=== PATIENT | female | born 1965 | race Asian ===

== ENCOUNTER 2016-09-04 19:58 | Emergency (ER) | payer OTHER ==
[2016-09-04 20:15] VITALS: BP 140/82; PULSE 90; TEMP 98.2; BMI 33.9
--- NOTE | 2016-09-04 20:55 | PDOC ---
History of Present Illness - General History Source: Patient Exam Limitations: No Limitations - History of Present Illness Initial Comments: 09/04/16 20:59 Patient is a 51 year old female with pmhx of Sjogrens syndrome who presents today with worsening right leg pain. Patient states that the pain has worsened for the last 2 and half weeks. She was seen in an Urgent Care and prescribed ibuprofen for pain. Patient states that the pain is not getting better. She also reports a lump to the back of the knee. 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 She denies any recent new trauma or falls. She denies any recent travel. She denies any SOB, cp, or chest pain. <Joann Valle - Last Filed: 09/04/16 21:08> <Christine Lam - Last Filed: 09/04/16 21:47> - General Chief Complaint: Pain Stated Complaint: LEG PAIN Time Seen by Provider: 09/04/16 20:39 Past History <Joann Valle - Last Filed: 09/04/16 21:08> - Past Medical History Anemia: No Asthma: No Cancer: No Cardiac Disorders: No CVA: No COPD: No CHF: No Dementia: No Diabetes: No GI Disorders: Yes (GASTRITIS, RT UPPER ABD. PAIN) Disorders: No HTN: Yes Hypercholesterolemia: No Liver Disease: No Seizures: No Thyroid Disease: No - Surgical History Abdominal Surgery: No Appendectomy: No Cardiac Surgery: No Cholecystectomy: No Lung Surgery: No Neurologic Surgery: No Orthopedic Surgery: No (LEFT ACHILLES SURGERY) - Psycho/Social/Smoking Cessation Hx Anxiety: No Suicidal Ideation: No Smoking History: Never smoked Have you smoked in the past 12 months: No Hx Alcohol Use: No Drug/Substance Use Hx: No Substance Use Type: None <Christine Lam - Last Filed: 09/04/16 21:47> - Past Medical History Allergies/Adverse Reactions: Allergies Allergy/AdvReac Type Severity Reaction Status Date / Time No Known Allergies Allergy Verified 09/04/16 20:15 Home Medications: Ambulatory Orders NK [No Known Home Medication] 07/11/15 Review of Systems - Review of Systems Able to Perform ROS?: Yes Comments:: 09/04/16 20:59 CONSTITUTIONAL: Absent: fever, no chills, no fatigue EYES: Absent: visual changes ENT: Absent: ear pain, no sore throat CARDIOVASCULAR: Absent: chest pain, no palpitations RESPIRATORY: Absent: cough, no SOB GI: Absent: abdominal pain, no nausea, no vomiting, no constipation, no diarrhea GENITOURINARY: Absent: dysuria, no frequency, no hematuria MUSCULOSKELETAL: Present: right leg pain. Absent: back pain SKIN: Absent: rash <Joann Valle - Last Filed: 09/04/16 21:08> *Physical Exam - Vital Signs Last Vital Signs Temp Pulse Resp BP Pulse Ox 98.2 F 90 18 140/82 99 09/04/16 20:12 09/04/16 20:12 09/04/16 20:12 09/04/16 20:12 09/04/16 20:12 - Physical Exam Comments: 09/04/16 21:00 GENERAL: Well-appearing, well-nourished. No apparent distress. HEENT: Normocephalic, atraumatic. PERRL, EOM intact. CARDIOVASCULAR: Normal S1, S2. Regular rate and rhythm. PULMONARY: Clear to auscultation bilaterally. ABDOMEN: Soft, non-distended, non-tender. EXTREMITIES: (+)Equal pedal pulse, no lump appreciated to the back of the knee on exam. Normal ROM in all four extremities. No gross deformities. SKIN: Warm, dry. No rash NEUROLOGICAL: No focal neurological deficits. <Joann Valle - Last Filed: 09/04/16 21:08> - Vital Signs Last Vital Signs Temp Pulse Resp BP Pulse Ox 98.2 F 90 18 140/82 99 09/04/16 20:12 09/04/16 20:12 09/04/16 20:12 09/04/16 20:12 09/04/16 20:12 <Christine Lam - Last Filed: 09/04/16 21:47> *DC/Admit/Observation/Transfer - Attestations Scribe Attestion: 09/04/16 21:00 Documentation prepared by LANDON Dick, acting as medical staff coordinator for Christine Lam NP. <Joann Valle - Last Filed: 09/04/16 21:08> <Genaro,Mini S. - Last Filed: 09/04/16 21:47> Diagnosis at time of Disposition: Pain of right lower extremity - Discharge Dispostion Disposition: HOME - Referrals Referrals: Charlene Cruz MD [Primary Care Provider] - 24 hours - Patient Instructions Printed Discharge Instructions: DI for Leg Pain Additional Instructions: follow up with your primary care doctor as soon as possible. take ibuprofen every 6 hours with food as needed for pain.
[2016-09-04] MEDS ORDERED: KETOROLAC TROMETHAMINE 30 MG/1 ML VIAL IM ONE (21:43)
[2016-09-04] MEDS ORDERED: KETOROLAC TROMETHAMINE 30 MG/1 ML VIAL ONE (21:49)
== END 2016-09-04 22:03 | disposition home or self-care (01) ==
LOC: JERFT 19:58
PROC: 3E0233Z Introduction of Anti-inflammatory into Muscle, Percutaneous Approach (ICD-10-PCS; principal; 2016-09-04)
DX: M79.604 Pain in right leg (principal); I10 Essential (primary) hypertension
CPT/HCPCS: 93971-TC; 99281-25

== ENCOUNTER 2016-09-19 07:37 | Day surgery (SDC) | payer OTHER ==
[2016-09-12 13:05] VITALS: BMI 36.3
[2016-09-19] MEDS ORDERED: LIDOCAINE 1%/EPI 1:100000 (20 ML MULTI DOSE VIAL) ONE (08:02)
[2016-09-19] MEDS ORDERED: BUPIVACAINE HCL/PF 0.5% (5MG/ML) 10 ML VIAL ONE ×3 (08:02→10:03)
[2016-09-19] MEDS ORDERED: MIDAZOLAM HCL 2 MG/2 ML SINGLE DOSE VIAL ONE (09:01)
[2016-09-19] MEDS ORDERED: PROPOFOL 20 ML ONE ×2 (09:26)
[2016-09-19] MEDS ORDERED: ePHEDrine SULFATE 50 MG/1 ML AMPULE ONE (09:26)
[2016-09-19] MEDS ORDERED: SUCCINYLCHOLINE CHLORIDE 200 MG/10 ML VIAL ONE (09:26)
[2016-09-19] MEDS ORDERED: KETOROLAC TROMETHAMINE 30 MG/1 ML VIAL ONE (09:28)
[2016-09-19] MEDS ORDERED: ONDANSETRON 4 MG/2 ML VIAL ONE (09:28)
[2016-09-19] MEDS ORDERED: DEXAMETHASONE SOD PHOSPHATE 4 MG/1 ML VIAL ONE (09:28)
[2016-09-19] MEDS ORDERED: LIDOCAINE HCL/PF 2% SDV 5ML VIAL ONE (09:28)
--- NOTE | 2016-09-19 10:13 | HP ---
Satellite [facility] - Chief Complaint Chief Complaint: right knee pain - Past Medical History Allergies/Adverse Reactions: Allergies Allergy/AdvReac Type Severity Reaction Status Date / Time No Known Allergies Allergy Verified 09/19/16 08:13 ...LMP: 12/14/11 ...LMP Comment: September 2015 - Current Medications Current Medications: Home Medications Medication Instructions Recorded Amlodipine Besylate 5 mg PO DAILY 09/12/16 Famotidine 20 mg PO DAILY 09/12/16 Oxycodone HCl/Acetaminophen 1 - 2 tab PO Q6H #50 tab MDD 8 09/19/16 [Percocet 5-325 mg Tablet -] Satellite Physical Exam - Physical Examination Vital Signs: Vital Signs Period Temp Pulse Resp BP Sys/Chapin Pulse Ox Last 24 Hr 98.2 F 94 16 134/83 98-98 General Appearance: Well Nourished, Well Developed, Alert & Oriented x3 ENT: Clear Lung: Normal air movement Heart: Regular rate & rhythm Extremities: Other (right knee- + swelling, + ttp, decr rom, + mcmurrays, + apleys, nvi MRI + mmt) Neurological: Intact, Alert, Oriented Satellite Impression/Plan - Impression/Plan Impression: right knee internal derangement Operative Procedure: right knee arthroscopy Date to be Performed: 09/19/16
[2016-09-19] MEDS ORDERED: oxyCODONE HCL 5 MG TABLET PO PRN (10:23)
[2016-09-19] MEDS ORDERED: LACTATED RINGERS SOLUTION 1,000 ML IV SCH (10:30)
[2016-09-19 10:35] VITALS: TEMP 97.7
[2016-09-19] MEDS ORDERED: ONDANSETRON 4 MG/2 ML VIAL IVPUSH ONE (10:45)
--- NOTE | 2016-09-19 10:52 | SPEC ---
DATE OF OPERATION: 09/19/2016 OPERATION: Arthroscopy, right knee, with partial medial meniscectomy. PREOPERATIVE DIAGNOSIS: Internal derangement, right knee. POSTOPERATIVE DIAGNOSIS: Internal derangement, right knee. SURGEON: Alexander Garcia M.D. ANESTHESIA: General with LMA. CLOSURE: 4-0 nylon. COMPLICATIONS: None. CONDITION: To recovery room in stable condition. DESCRIPTION OF OPERATIVE PROCEDURE: Patient was taken to the operating room and general anesthesia with LMA was administered by the anesthesiologist. Right lower extremity was prepped and draped in usual sterile fashion. The supralateral and medial lateral infrapatellar portal sites were infiltrated with 1% Xylocaine with epinephrine. Supralateral portal was made with a 15 blade blunt trocar. The right knee was aspirated and inflated with a cocktail of 10 mL of 1% Xylocaine with 0.5% Marcaine and 20 mL of arthroscopic saline. Medial and lateral infrapatellar portals were then made with a 15 blade blunt trocar. The scope was placed in the lateral infrapatellar portal and up into the suprapatellar pouch. Pouch was visualized to be clean. The medial and lateral gutters were visualized to be clean. The undersurface of the patella and trochlea were visualized to be intact. With valgus stress on the knee, the medial compartment was entered and medial meniscus was visualized, probed, and found to have a complex tear of the posterior horn. This was debrided back to smooth and stable meniscal tissue using meniscal biters and arthroscopic shaver. Medial femoral condyle was run and found to be intact as was the medial tibial plateau. At 90 degrees, the ACL was visualized, probed and found to be intact. In the figure four position, the lateral compartment was entered. Lateral meniscus was visualized, probed and found to be intact. The lateral femoral condyle was run and found to be intact as was the lateral tibial plateau. The knee was irrigated with copious amounts of irrigation. The portals were closed with 4-0 nylon. Prior to closure of the supralateral portal, 20 mL of 0.5% Marcaine was infused through the outflow portal prior to pulling the cannula. Sterile pressure dressing was placed over the knee. Patient was awakened from anesthesia and transferred to recovery room in stable condition. No complications. Estimated blood loss was negligible. ALEXANDER GARCIA M.D. [id number]
[2016-09-19] MEDS ORDERED: ONDANSETRON 4 MG/2 ML VIAL IVPUSH PRN (11:03)
[2016-09-19 12:53] VITALS: BP 132/78; PULSE 86
== END 2016-09-19 12:40 | disposition home or self-care (01) ==
LOC: FASU 07:37
PROVIDERS: ATTEND Orthopaedic Surgery
PROC: 0SBC4ZZ Excision of Right Knee Joint, Percutaneous Endoscopic Approach (ICD-10-PCS; principal; 2016-09-19 09:59)
DX: S83.231A Complex tear of medial meniscus, current injury, right knee, initial encounter (principal); X58.XXXA Exposure to other specified factors, initial encounter; Y93.9 Activity, unspecified; Y92.9 Unspecified place or not applicable
CPT/HCPCS: 84703; 94760

== ENCOUNTER 2018-09-20 08:55 | Day surgery (SDC) | payer OTHER ==
[2018-09-19 13:56] VITALS: BMI 35.5
[2018-09-20] MEDS ORDERED: LIDOCAINE HCL 1%, 10 MG/ML (20ML VIAL) ONE (09:00)
--- NOTE | 2018-09-20 09:57 | HP ---
History & Physical Update - History History: No Change - Physical Physical: No Change - Assessment Assessment: No Change - Plan Plan: No Change (Indurated mass on right side of neck, in posterior triangle. Measures about 3 cm. in diameter. Plan : Excision of mass right neck.)
[2018-09-20] MEDS ORDERED: PROPOFOL 20 ML ONE (10:10)
[2018-09-20] MEDS ORDERED: ceFAZolin SODIUM 1 GM VIAL ONE ×2 (10:10→10:16)
[2018-09-20] MEDS ORDERED: LIDOCAINE HCL/PF 2% SDV 5ML VIAL ONE (10:10)
[2018-09-20] MEDS ORDERED: MIDAZOLAM HCL 2 MG/2 ML SINGLE DOSE VIAL ONE (10:10)
[2018-09-20] MEDS ORDERED: ceFAZolin SODIUM 1 GM VIAL IVPB ONE (10:14)
[2018-09-20] MEDS ORDERED: LIDOCAINE HCL 1%, 10 MG/ML (20ML VIAL) NR ONE (10:28)
--- NOTE | 2018-09-20 11:05 | OP ---
Operative Note - Note: Operative Date: 09/20/18 Pre-Operative Diagnosis: 4cm. mass in right posterior neck. Operation: Excision of 4cm. mass in right posterior neck, deep to deep fascia , with simple repair in layers. Findings: Firm mass extending deep to deep fascia. Post-Operative Diagnosis: Same as Pre-op Surgeon: Husam Bello Anesthesiologist/CARDIAC SPECIALIST: Martha Jones Anesthesia: Local, MAC Specimens Removed: Mass right posterior neck. Estimated Blood Loss (mls): 5 Operative Report Dictated: Yes
--- NOTE | 2018-09-20 12:14 | OP ---
DATE OF OPERATION: 09/20/2018 PREOPERATIVE DIAGNOSIS: A 4-cm firm to hard mass, the right posterior neck. POSTOPERATIVE DIAGNOSIS: A 4-cm firm to hard mass, the right posterior neck. OPERATIVE PROCEDURE: Excision of 4-cm mass in the right posterior neck, extending deep to the deep fascia, with simple repair in layers. SURGEON: Luis Angel Bello MD ANESTHESIOLOGIST: Martha Jones MD ANESTHESIA: Local with monitored intravenous sedation. OPERATIVE DESCRIPTION: This 53-year-old woman had a mass in the right posterior neck which was firm to hard in the posterior triangle. Patient was brought in for excision of the lesion. Consent was obtained. Risks, benefits, and complications had been discussed with the patient. The site was marked. Patient was brought to the operating room. She was given intravenous sedation. The head was down to the left side, and the area of concern was exposed. The area was painted and draped. Lidocaine 1% with epinephrine was injected circumferentially around the lesion. A 4-cm elliptical incision was made around the lesion. Skin was undermined on both sides. The mass was identified. It was from the surrounding structures going through the subcutaneous fat and the deep fascia and completely excised. Specimen was sent to Pathology. The wound was irrigated. Bleeding vessels were cauterized with electrocautery. Upon excision, the lesion extended deep to the deep fascia. The deep fascia on either side was then approximately with buried interrupted 3-0 Vicryl sutures. Subcutaneous fat was approximated with buried interrupted 4-0 Biosyn sutures. Then, the skin was approximated with continuous 4-0 Biosyn sutures in a running subcuticular fashion. Estimated blood loss was less than 5 mL. Sponge count and instrument count were correct. Dermabond was applied to the skin edges. Patient tolerated the procedure well and was sent from the operative suite in satisfactory and stable condition. Teresa GARY/[id number]
[2018-09-20 12:24] VITALS: BP 103/56; PULSE 78; TEMP 97.8
--- NOTE | 2018-09-20 14:02 | EKG ---
Test Reason : Blood Pressure : / mmHG Vent. Rate : 082 BPM Atrial Rate : 082 BPM P-R Int : 144 ms QRS Dur : 074 ms QT Int : 374 ms P-R-T Axes : 033 -06 011 degrees QTc Int : 436 ms NORMAL SINUS RHYTHM MINIMAL VOLTAGE CRITERIA FOR LVH, MAY BE NORMAL VARIANT CANNOT RULE OUT INFERIOR INFARCT , AGE UNDETERMINED WHEN COMPARED WITH ECG OF 28-APR-2007 11:39, NO SIGNIFICANT CHANGE WAS FOUND Confirmed by ISABEL YO, SUSANA ([id number]) on 09/20/2018 2:02:04 PM Referred By: MAGDA KEATING DR Confirmed By:SUSANA HALL MD
--- NOTE | 2018-09-25 17:11 | PATH ---
Surgical Pathology Report Patient Name: CHRISTINE MCDANIELS [facility]. Rec. #: [id number] /Age/Gender: 1965 (Age: 53) / F Account: [id number] Location: [facility] SURGICAL Taken: 09/20/2018 Received: 09/23/2018 Reported: 09/25/2018 Physicians: Luis Angel Bello M.D. Specimen(s) Received RIGHT POSTERIOR NECK MASS Clinical History Right neck mass Final Diagnosis RIGHT POSTERIOR NECK MASS, EXCISION: SEGMENT OF SKIN WITH EPIDERMAL INCLUSION CYST, RUPTURED. Electronically Signed Anjana Moreno M.D. Gross Description Received in formalin labeled "mass posterior neck right," is a 1.7 x 0.4 cm alaniz, elliptical, unoriented portion of skin excised to depth of 0.6 cm. Sectioning reveals a alaniz-orange, possible cystic lesion. Manager Of Learning sections are submitted in one cassette. /09/23/2018 saudi09/23/2018
== END 2018-09-20 12:20 | disposition home or self-care (01) ==
LOC: JASU-SURG 08:55
PROVIDERS: ATTEND Specialist
PROC: 0JB40ZZ Excision of Right Neck Subcutaneous Tissue and Fascia, Open Approach (ICD-10-PCS; principal; 2018-09-20 10:00)
DX: L72.0 Epidermal cyst (principal)
CPT/HCPCS: 88304-TC; 93005; 93010

== ENCOUNTER 2019-01-28 13:58 | Emergency (ER) | payer OTHER ==
[2019-01-28 14:09] VITALS: BP 155/85; PULSE 118; TEMP 98.8; BMI 35.5
--- NOTE | 2019-01-28 14:14 | PDOC ---
Rapid Medical Evaluation Chief Complaint: Chest Pain Time Seen by Provider: 01/28/19 14:07 Medical Evaluation: Allergies Allergy/AdvReac Type Severity Reaction Status Date / Time No Known Allergies Allergy Verified 01/28/19 14:09 Vital Signs Temp Pulse Resp BP Pulse Ox 98.8 F 118 H 21 H 155/85 100 01/28/19 14:04 01/28/19 14:04 01/28/19 14:04 01/28/19 14:04 01/28/19 14:04 01/28/19 14:11 I have performed a brief in-person evaluation of this patient. The patient presents with a chief complaint of: h/o HTN present with complains of chest pressure, [place] and dizziness after having MRI of spine 4 days ago. Patient report symptoms started right after the MRI and has been persistent. Denies SOB, CP, palpitations, numbness or tingling sensation, Pertinent physical exam findings: A&O x 3 in NAD. RRR. lungs CTAB. I have ordered the following: EKG, CBC,Cardiac profile The patient will proceed to the ED for further evaluation. Discharge Disposition - Diagnosis Chest discomfort - Discharge Dispostion Condition at time of disposition: Stable - Referrals - Patient Instructions - Post Discharge Activity
[2019-01-28 15:05] LABS: BASO % 0.8 % (0-2.0); EOS % 1.1 % (0-4.5); HEMATOCRIT 38.6 % (32.4-45.2); HEMOGLOBIN 12.8 GM/dL (10.7-15.3); MCH 30.2 pg (25.7-33.7); MCHC 33.1 g/dl (32.0-36.0); MEAN PLT VOLUME 8.6 fl (7.5-11.1); MONO % 7.4 % (3.8-10.2); NEUT % 43.7 % (42.8-82.8); PLATELET COUNT 223 K/MM3 (134-434); RBC 4.24 M/mm3 (3.60-5.2); WHITE BLOOD COUNT 5.8 K/mm3 (4.0-10.0)
[2019-01-28 15:32] LABS: ANION GAP 5 MMOL/L (8-16); BLOOD UREA NITROGEN 14.3 mg/dL (7-18); CALCIUM 8.7 mg/dL (8.5-10.1); CHLORIDE 104 mmol/L (98-107); CO2 28 mmol/L (21-32); CREATININE 0.9 mg/dL (0.55-1.3); GLUCOSE,RANDOM 105 mg/dL (74-106); POTASSIUM 3.9 mmol/L (3.5-5.1); SODIUM 137 mmol/L (136-145)
[2019-01-28] MEDS ORDERED: KETOROLAC TROMETHAMINE 30 MG/1 ML VIAL IVPUSH ONE (15:56)
[2019-01-28] MEDS ORDERED: SODIUM CHLORIDE 0.9% 500 ML INFUS.BAG IV ONE (15:56)
--- NOTE | 2019-01-28 15:57 | PDOC ---
History of Present Illness <Dorina Aguilar - Last Filed: 01/28/19 19:41> - History of Present Illness Initial Comments: 01/28/19 16:23 53y/o F hx of sjogren's syndrome, HTN, presents to the ER with 4 days of left sided chest pain/discomfort and weakness, after and MRI 4 days ago,Pain is decribed more as discomfort and she rates it as a 3/10. She reports no alleviating/exacerbating symptoms. She took Tylenol for pain with no relief. she denies any nausea, vomiting, hx of blood clots,pleuritic chest pain, hemoptysis, treament for cancer within the last 6months, shortness of breath, cough, fever, chills. 01/28/19 16:35 <Nathaly Lion - Last Filed: 01/30/19 18:37> - General Chief Complaint: Chest Pain Stated Complaint: CHEST PAIN Time Seen by Provider: 01/28/19 14:07 Past History <Dorina Aguilar - Last Filed: 01/28/19 19:41> - Past Medical History Anemia: No Asthma: No Cancer: No Cardiac Disorders: No CVA: No COPD: No CHF: No Dementia: No Diabetes: No GI Disorders: Yes (GASTRITIS, RT UPPER ABD. PAIN) Disorders: No HTN: Yes Hypercholesterolemia: No Liver Disease: No Seizures: No Thyroid Disease: No - Surgical History Abdominal Surgery: No Appendectomy: No Cardiac Surgery: No Cholecystectomy: No Lung Surgery: No Neurologic Surgery: No Orthopedic Surgery: No (LEFT ACHILLES SURGERY) - Psycho Social/Smoking Cessation Hx Smoking History: Never smoked Have you smoked in the past 12 months: No Information on smoking cessation initiated: No Hx Alcohol Use: No Drug/Substance Use Hx: No Substance Use Type: None Hx Substance Use Treatment: No <Nathaly Lion - Last Filed: 01/30/19 18:37> - Past Medical History Allergies/Adverse Reactions: Allergies Allergy/AdvReac Type Severity Reaction Status Date / Time No Known Allergies Allergy Verified 01/28/19 14:09 Home Medications: Ambulatory Orders Amlodipine Besylate 5 mg PO DAILY 09/12/16 Ergocalciferol (Vitamin D2) [Vitamin D2] 50,000 unit PO WEEKLY 09/19/18 Multivitamin/Iron/Folic Acid [Centrum Adults Tablet] 1 each PO DAILY 09/19/18 Ibuprofen [Motrin -] 400 mg PO TID #21 tablet 09/20/18 Regrigerated Antibiotics 0 each PO DAILY 09/20/18 predniSONE [Deltasone -] 50 mg PO DAILY #4 tablet 01/28/19 predniSONE [Deltasone -] 60 mg PO DAILY 5 Days #15 tablet 01/28/19 Review of Systems - Review of Systems Constitutional: No: Chills, Fever HEENTM: No: Eye Pain, Blurred Vision Respiratory: No: Cough, Shortness of Breath Cardiac (ROS): Yes: Chest Pain, Palpitations ABD/GI: No: Nausea, Vomiting : No: Burning, Dysuria Integumentary: No: Bruising, Change in Color Neurological: No: Headache, Numbness <Nathaly Lion - Last Filed: 01/30/19 18:37> *Physical Exam - Vital Signs Last Vital Signs Temp Pulse Resp BP Pulse Ox 98.8 F 118 H 21 H 155/85 100 01/28/19 14:04 01/28/19 14:04 01/28/19 14:04 01/28/19 14:04 01/28/19 14:04 <Dorina Aguilar - Last Filed: 01/28/19 19:41> - Vital Signs Last Vital Signs Temp Pulse Resp BP Pulse Ox 98.8 F 118 H 21 H 155/85 100 01/28/19 14:04 01/28/19 14:04 01/28/19 14:04 01/28/19 14:04 01/28/19 14:04 - Physical Exam 01/28/19 16:33 PE: GENERAL: Awake, alert, and fully oriented, in no acute distress HEAD: No signs of trauma, normocephalic, atraumatic EYES: PERRLA, EOMI, sclera anicteric, conjunctiva clear ENT: Auricles normal inspection, hearing grossly normal, nares patent, oropharynx clear without exudates. Moist mucosa NECK: Normal ROM, supple, JVD, or masses LUNGS: No distress, speaks full sentences, clear to auscultation bilaterally HEART: Regular rate and rhythm, normal S1 and S2, no murmurs, rubs or gallops, peripheral pulses normal and equal bilaterally. ABDOMEN: Soft, nontender, normoactive bowel sounds. No guarding, no rebound. No masses EXTREMITIES : Normal inspection, Normal range of motion, no edema. No clubbing or cyanosis NEUROLOGICAL: Cranial nerves II through XII grossly intact. Normal speech, normal gait, no focal sensorimotor deficits SKIN: Warm, erythema of cheeks. rash on fingers and hands, and anterior neck. <Nathaly Lion - Last Filed: 01/30/19 18:37> ED Treatment Course - LABORATORY CBC & Chemistry Diagram: 01/28/19 14:56 01/28/19 14:56 - ADDITIONAL ORDERS Additional order review: Laboratory Results 01/28/19 01/28/19 01/28/19 16:45 16:45 14:56 PT with INR 11.00 INR 0.93 PTT (Actin FS) 30.7 D-Dimer 395 Sodium 137 Potassium 3.9 Chloride 104 Carbon Dioxide 28 Anion Gap 5 L BUN 14.3 Creatinine 0.9 Est GFR (CKD-EPI)AfAm 83.43 Est GFR (CKD-EPI)NonAf 71.98 Random Glucose 105 Calcium 8.7 Creatine Kinase 84 Troponin I < 0.02 01/28/19 14:56 RBC 4.24 MCV 91.0 MCHC 33.1 RDW 13.0 MPV 8.6 Neutrophils % 43.7 Lymphocytes % 47.0 H Monocytes % 7.4 Eosinophils % 1.1 Basophils % 0.8 - Medications Given in the ED: ED Medications Discontinued Medications Generic Name Dose Route Start Last Admin Trade Name Freq PRN Reason Stop Dose Admin Ketorolac Tromethamine 30 mg 01/28/19 15:56 01/28/19 16:57 Toradol Injection - IVPUSH 01/28/19 15:57 30 mg ONCE ONE Administration Sodium Chloride 1,000 ml 01/28/19 15:56 01/28/19 16:56 Normal Saline - IV 01/28/19 15:57 1,000 ml ONCE ONE Administration <Dorina Aguilar - Last Filed: 01/28/19 19:41> - LABORATORY CBC & Chemistry Diagram: 01/28/19 14:56 01/28/19 14:56 - ADDITIONAL ORDERS Additional order review: Laboratory Results 01/28/19 14:56 Sodium 137 Potassium 3.9 Chloride 104 Carbon Dioxide 28 Anion Gap 5 L BUN 14.3 Creatinine 0.9 Est GFR (CKD-EPI)AfAm 83.43 Est GFR (CKD-EPI)NonAf 71.98 Random Glucose 105 Calcium 8.7 Creatine Kinase 84 Troponin I < 0.02 01/28/19 14:56 RBC 4.24 MCV 91.0 MCHC 33.1 RDW 13.0 MPV 8.6 Neutrophils % 43.7 Lymphocytes % 47.0 H Monocytes % 7.4 Eosinophils % 1.1 Basophils % 0.8 <Nathaly Lion - Last Filed: 01/30/19 18:37> Medical Decision Making - Medical Decision Making 01/28/19 16:00 wells's score 1.5 01/28/19 16:35 53y/o F hx of sjogren's syndrome, HTN, presents to the ER with 4 days of left sided chest pain/discomfort and weakness, cbc, bmp, ekg, pt/ptt/inr, chest x-ray (pa, lateral) 01/28/19 18:06 trop negative d-dimer wnl Pt doing better after pain medication. Pain and generalzied weaknes likely due to Sjogren's flare Pt counseled to follow up with her PCP and Application Project Leader as soon as possible to establish care. signed out to Dr. Aguilar 01/30/19 18:35 <Nathaly Lion - Last Filed: 01/30/19 18:37> Discharge <Dorina Aguilar - Last Filed: 01/28/19 19:41> - Discharge Information Problems reviewed: Yes - Admission No <Nathaly Lion - Last Filed: 01/30/19 18:37> - Discharge Information Clinical Impression/Diagnosis: Chest discomfort Sjogrens syndrome Qualifiers: Sjogren's organ involvement: unspecified organ involvement Qualified Code(s): M35.00 - Sicca syndrome, unspecified Condition: Stable Disposition: HOME - Additional Discharge Information Prescriptions: predniSONE [Deltasone -] 60 mg PO DAILY 5 Days #15 tablet predniSONE [Deltasone -] 50 mg PO DAILY #4 tablet - Follow up/Referral Referrals: Charlene Cruz MD [Primary Care Provider] - - Patient Discharge Instructions Patient Printed Discharge Instructions: Sjogren Syndrome, DI for Atypical Chest Pain Additional Instructions: You were seen in the ER for chest pain All your labs were normal You have been prescribed steroid medications. take as prescribed Follow up with your primary care doctor Dr. Cruz after being discharged for tapering of your steroid medications Please follow up with your assembler tester within 1-2 weeks. Return to the ER if chest pain worsens you develop fevers, chills - Post Discharge Activity
--- NOTE | 2019-01-28 16:37 | PDOC ---
Attending Attestation - Resident Resident Name: Nathaly Lion - ED Attending Attestation I have performed the following: I have examined & evaluated the patient, The case was reviewed & discussed with the resident, I agree w/resident's findings & plan - HPI HPI: 01/28/19 16:30 53-year-old female with history of hypertension and Sjogren's presents with 4 days of back pain with generalized weakness and musculoskeletal discomfort. Patient had routine outpatient noncontrast MRI of the cervical and thoracic spine 4 days ago, ordered by neurology. During the MRI, patient began feeling generally weak and achy, proceeded with the MRI without other difficulty. Since then, reports worsening of her chronic back pain along with onset of her Sjogren's facial rash and generalized weakness. No fevers or chills, the rash is typical of her Sjogren's but now also includes the dorsal aspect of both wrists, no other arthropathy or complaints. went to outside ED day after MRI to report generalized weakness, had labs/ua done and discharged home. presents now 2/2 persistent sxs. - Physicial Exam PE: 01/28/19 16:36 Vitals as noted, afebrile, slight tachycardia at triage improved on my examination, slightly tachypneic, visibly anxious Alert seated comfortably in stretcher, speaking full sentences, no acute distress Positive malar facial rash, oropharynx otherwise clear with moist mucosa Neck supple, surgical incisional scar healed Heart is regular without murmur, lungs are clear Abdomen benign No edema or calf tenderness Neurologically intact Eczematous rash to the dorsal aspect of both wrists, skin otherwise clear aside from face - Medical Decision Making 01/28/19 16:37 53-year-old female with history of hypertension and Sjogren's presents with generalized weakness, skin rash, body aches. Afebrile here without focal findings on examination other than rash exacerbation. Presentation seems most consistent with Sjogren's exacerbation, unlikely to be related with the MRI. Chest pain is atypical for ACS and PE, though tachycardia noted and elevated risk give SS. Check labs including ddimer, EKG, chest x-ray MRI results reviewed showing some abnormality on cervical imaging but no acute spinal cord lesion, thoracic MRI normal Speak with PCP, consider steroid course for Sjogren's exacerbation Patient has appointment upcoming with a new manager community development We will also discussed disposition with Dr. Nix, the patient's neurologist Reassess Heart Score/ECG Review #1 ECG reviewed & interpreted by me at: 14:02 General ECG Interpretation: Sinus Rhythm, Normal Rate (slight tachy at 108), Normal Intervals (qtc 428), No acute ischemic changes
[2019-01-28] MEDS ORDERED: KETOROLAC TROMETHAMINE 30 MG/1 ML VIAL ONE (16:57)
[2019-01-28 17:17] LABS: INR 0.93 (0.83-1.09)
[2019-01-28 17:20] LABS: ACTIVATED PTT 30.7 SECONDS (25.2-36.5)
--- NOTE | 2019-01-29 10:41 | EKG ---
Test Reason : Blood Pressure : / mmHG Vent. Rate : 108 BPM Atrial Rate : 108 BPM P-R Int : 126 ms QRS Dur : 078 ms QT Int : 320 ms P-R-T Axes : 054 001 048 degrees QTc Int : 428 ms SINUS TACHYCARDIA POSSIBLE LEFT ATRIAL ENLARGEMENT BORDERLINE ECG WHEN COMPARED WITH ECG OF 20-SEP-2018 09:15, T WAVE INVERSION NO LONGER EVIDENT IN INFERIOR LEADS Confirmed by ANJALI YO, LUIS ([id number]) on 01/29/2019 10:41:03 AM Referred By: Confirmed By:LUIS ALBA MD
[2019-01-30 02:56] LABS: ALBUMIN 3.9 g/dl (3.4-5.0); ALK PHOS 86 U/L (45-117); BILIRUBIN,TOTAL 0.3 mg/dL (0.2-1); SGOT/AST 19 U/L (15-37); SGPT/ALT 26 U/L (13-61); TOT PROT 8.1 g/dl (6.4-8.2)
== END 2019-01-28 19:57 | disposition home or self-care (01) ==
LOC: JER 13:58
PROC: 3E0333Z Introduction of Anti-inflammatory into Peripheral Vein, Percutaneous Approach (ICD-10-PCS; principal; 2019-01-28)
DX: I10 Essential (primary) hypertension (principal); M35.00 Sjogren syndrome, unspecified; R07.89 Other chest pain
CPT/HCPCS: 36415; 71046-TC-FY; 80048; 80053; 82550; 84484; 85025; 85379; 85610; 85730; 93005; 93010; 99282-25

== ENCOUNTER 2019-10-28 08:40 | Emergency (ER) | payer OTHER ==
[2019-10-28 08:59] VITALS: BP 153/97; PULSE 92; TEMP 98.7; BMI 35.2
--- NOTE | 2019-10-28 09:18 | PDOC ---
History of Present Illness <GabeGenaro - Last Filed: 10/28/19 09:44> - General History Source: Patient Exam Limitations: No Limitations <Marcie Hernández - Last Filed: 10/28/19 12:06> - General Chief Complaint: Weakness Stated Complaint: LOWER BACK PAIN/ WEAKNESS Time Seen by Provider: 10/28/19 08:48 Past History <GabeGenaro - Last Filed: 10/28/19 09:44> - Travel History Traveled outside of the country in the last 30 days: No Close contact w/someone who was outside of country & ill: No - Medical History Anemia: No Asthma: No Cancer: No Cardiac Disorders: No CVA: No COPD: No CHF: No Dementia: No Diabetes: No GI Disorders: Yes (GASTRITIS, RT UPPER ABD. PAIN) Disorders: No HTN: Yes Hypercholesterolemia: No Liver Disease: No Seizures: No Thyroid Disease: No Other medical history: LUPUS - Surgical History Abdominal Surgery: No Appendectomy: No Cardiac Surgery: No Cholecystectomy: No Lung Surgery: No Neurologic Surgery: No Orthopedic Surgery: No (LEFT ACHILLES SURGERY) - Immunization History Immunization Up to Date: No - Psycho-Social/Smoking History Smoking History: Never smoked Have you smoked in the past 12 months: No - Substance Abuse Hx (Audit-C & DAST Scrn) How often the patient has a drink containing alcohol: Never Score: In Men: 4 or > Positive; In Women: 3 or > Positive: 0 Screen Result (Pos requires Nsg. Audit-10AR): Negative In the last yr the pt used illegal drug/Rx for NonMed reason: No Score: Yes response is considered Positive: 0 Screen Result (Positive result requires Nsg. DAST-10): Negative <Marcie Hernández - Last Filed: 10/28/19 12:06> - Medical History Allergies/Adverse Reactions: Allergies Allergy/AdvReac Type Severity Reaction Status Date / Time No Known Allergies Allergy Verified 10/28/19 08:44 Home Medications: Ambulatory Orders Amlodipine Besylate 5 mg PO DAILY 09/12/16 Methylprednisolone [Medrol Dose Rick] 4 mg PO ASDIR #21 tablet 10/28/19 Metoprolol Succinate 25 mg PO DAILY 10/28/19 Review of Systems - Review of Systems Able to Perform ROS?: Yes Comments:: 10/28/19 09:12 CONSTITUTIONAL: Present: Body aches, Generalized weakness Absent: fever, chills, diaphoresis, l oss of appetite HEENT: Absent: rhinorrhea, nasal congestion, throat pain, throat swelling, difficulty swallowing, mouth swelling, ear pain, eye pain, visual Changes CARDIOVASCULAR: Absent: chest pain, loss of consciousness, palpitations, irregular heart rate, peripheral edema RESPIRATORY: Absent: cough, shortness of breath, dyspnea with exertion, orthopnea, wheezing, stridor, hemoptysis GASTROINTESTINAL: Absent: abdominal pain, abdominal distension, nausea, vomiting, diarrhea, constipation, melena, hematochezia GENITOURINARY: Absent: dysuria, frequency, urgency, hesitancy, hematuria, flank pain, genital pain MUSCULOSKELETAL: Present: Lower back pain Absent: myalgia, arthralgia, joint swelling SKIN: Absent: rash, itching, pallor HEMATOLOGIC/IMMUNOLOGIC: Absent: easy bleeding, easy bruising, lymphadenopathy, frequent infections ENDOCRINE: Absent: unexplained weight gain, unexplained weight loss, heat intolerance, cold intolerance NEUROLOGIC: Absent: headache, focal weakness or paresthesias, dizziness, unsteady gait, seizure, mental status changes, bladder or bowel incontinence PSYCHIATRIC: Absent: anxiety, depression, suicidal or homicidal ideation, hallucinations. Is the patient limited Korean proficient: No <Marcie Hernández - Last Filed: 10/28/19 12:06> *Physical Exam - Vital Signs Last Vital Signs Temp Pulse Resp BP Pulse Ox 98.7 F 92 H 18 153/97 100 10/28/19 08:44 10/28/19 08:44 10/28/19 08:44 10/28/19 08:44 10/28/19 08:44 <Genaro Bernal - Last Filed: 10/28/19 09:44> - Vital Signs Last Vital Signs Temp Pulse Resp BP Pulse Ox 98.7 F 92 H 18 153/97 100 10/28/19 08:44 10/28/19 08:44 10/28/19 08:44 10/28/19 08:44 10/28/19 08:44 - Physical Exam 10/28/19 09:14 GENERAL: Well developed, well nourished. Awake and alert. No acute distress. Generalized tenderness palpation of the arms, legs and back. HEENT: Normocephalic, atraumatic. PERRLA, EOMI. No conjunctival pallor. Sclera are non- icteric. Moist mucous membranes. Oropharynx is clear. NECK: Supple. Full ROM. No JVD. Carotid pulses 2+ and symmetric, without bruits. No thyromegaly. No lymphadenopathy. CARDIOVASCULAR: Regular rate and rhythm. No murmurs, rubs, or gallops. Distal pulses are 2+ and symmetric. PULMONARY: No evidence of respiratory distress. Lungs clear to auscultation bilaterally. No wheezing, rales or rhonchi. ABDOMINAL: Soft. Non-tender. Non-distended. No rebound or guarding. No organomegaly. Normoa ctive bowel sounds. MUSCULOSKELETAL Normal range of motion at all joints. No bony deformities or tenderness. No CVA tenderness. EXTREMITIES: No cyanosis. No clubbing. No edema. No calf tenderness. SKIN: Warm and dry. Normal capillary refill. No rashes. No jaundice. NEUROLOGICAL: Alert, awake, appropriate. Cranial nerves 2-12 intact. No deficits to light touch and temperature in face, upper extremities and lower extremities. No motor deficits in the in face, upper extremities and lower extremities. Normoreflexic in the upper and lower extremities. Normal speech. Toes are down-going bilate rally. Gait is normal without ataxia. PSYCHIATRIC: Cooperative. Good eye contact. Appropriate mood and affect. <Marcie Hernández - Last Filed: 10/28/19 12:06> Heart Score/ECG Review #1 ECG reviewed & interpreted by me at: 09:38 General ECG Interpretation: Sinus Rhythm, Normal Rate (83), Normal Intervals (qtc 425, LVH, prwp), No acute ischemic changes Compared to previous ECG there are: Changes noted (since 02/06, precordial leads show poor progression but no acute ischemic changes) <Genaro Bernal - Last Filed: 10/28/19 09:44> ED Treatment Course - LABORATORY CBC & Chemistry Diagram: 10/28/19 09:25 10/28/19 09:25 <Marcie Hernández - Last Filed: 10/28/19 12:06> Medical Decision Making - Medical Decision Making 10/28/19 09:14 The patient is a 54-year-old female with past medical history of lupus, Sjogren's disease, hypertension, gastritis, presents to the ER today for general ized weakness and body aches for the past 2 days. She also notes she is having lower back pain which is worse than her other generalized body aches. She denies any new activities, rigorous housecleaning. She states that she has not been taking Plaquenil as previously prescribed as it "does not agree with her ". She denies shortness of breath, chest pain or difficulty breathing. She states she has not been to a manufacturing storeperson in the last year for her symptoms. A/P: Generalized body aches/weakness On exam patient is in no acute distress, lungs clear to auscultation bilaterally. Regular rate and rhythm. No murmurs rubs or gallops. Patient with generalized body aches with palpation to the arms, legs and back., Questionable CVA tenderness versus muscle spasm on the left. Given patient's complex medical history, will order basic labs, urine and EKG to evaluate for worsening lupus versus other pathology. Consider steroids Reevaluate 10/28/19 12:00 Lab work is all grossly within normal limits. Mildly elevated ESR and CRP. This is consistent with lupus. 60 mg of prednisone given in the ER now. We will prescribe patient a taper and have her follow-up with her manufacturing storeperson as this is likely a lupus flare. Discharge home with strict return precautions I discussed the physical exam findings, ancillary test results and final diagnoses with the patient. I answered all of the patient's questions. The patient was satisfied with the care received and felt comfortable with the disc harge plan and treatment plan. The Patient agrees to follow up with the primary care physician/specialist within 24-72 hours. Return precautions were given. <Marcie Hrenández - Last Filed: 10/28/19 12:06> Discharge <Genaro Bernal - Last Filed: 10/28/19 09:44> - Discharge Information Problems reviewed: Yes - Admission No <Marcie Hernández - Last Filed: 10/28/19 12:06> - Discharge Information Clinical Impression/Diagnosis: Lupus, Generalized body aches Condition: Stable Disposition: HOME - Follow up/Referral Referrals: Charlene Cruz MD [Primary Care Provider] - Marcell Sanchez MD [Staff Physician] - - Patient Discharge Instructions Additional Instructions: You were seen for your generalized body aches and weakness today. It is most likely due to a lupus flareup. Please take the prednisone as directed to help with your symptoms. It is important that you follow-up with a manufacturing storeperson this week. A referral has been provided to you. You may also take Tylenol 650 mg every 4 hours as needed for pain. You may apply warm packs on your back to help with your pain as well. Return to the ER if you have worsening symptoms, lightheadedness, difficulty breathing, or if you have any changes in your symptoms. - Post Discharge Activity Work/Back to School Note: Back to Work
[2019-10-28] MEDS ORDERED: ACETAMINOPHEN INJECTION 100 ML IVPB ONE (09:31)
[2019-10-28 10:00] LABS: INR 0.98 (0.83-1.09); PROTHROMBIN TIME (PATIENT) 11.6 SEC (9.7-13.0)
[2019-10-28] MEDS ORDERED: ACETAMINOPHEN 1000 MG/100 ML VIAL (NON FORMULARY) IVPB ONE (10:10)
[2019-10-28 10:12] LABS: BASO % 0.4 % (0-2.0); EOS % 0.7 % (0-4.5); HEMATOCRIT 39.4 % (32.4-45.2); HEMOGLOBIN 13.5 GM/dL (10.7-15.3); LYMPH % 46.1 % (8-40); MCH 31.3 pg (25.7-33.7); MCHC 34.2 g/dl (32.0-36.0); MEAN CELL VOLUME 91.5 fl (80-96); MEAN PLT VOLUME 8.4 fl (7.5-11.1); MONO % 7.6 % (3.8-10.2); NEUT % 45.2 % (42.8-82.8); PLATELET COUNT 245 K/MM3 (134-434); RDW 12.9 % (11.6-15.6); WHITE BLOOD COUNT 5.4 K/mm3 (4.0-10.0)
[2019-10-28 10:43] LABS: ALK PHOS 97 U/L (45-117); ANION GAP 7 MMOL/L (8-16); BILIRUBIN,TOTAL 0.5 mg/dL (0.2-1); BLOOD UREA NITROGEN 13.9 mg/dL (7-18); CHLORIDE 102 mmol/L (98-107); CO2 29 mmol/L (21-32); CREATININE 0.8 mg/dL (0.55-1.3); POTASSIUM 4.3 mmol/L (3.5-5.1); SGOT/AST 19 U/L (15-37); SGPT/ALT 21 U/L (13-61); SODIUM 138 mmol/L (136-145); TOT PROT 8.3 g/dl (6.4-8.2)
[2019-10-28 10:54] LABS: ALBUMIN 3.9 g/dl (3.4-5.0); CALCIUM 8.9 mg/dL (8.5-10.1); GLUCOSE,RANDOM 97 mg/dL (74-106)
[2019-10-28 11:09] LABS: URINE APPEARANCE CLEAR; URINE BILIRUBIN NEGATIVE (NEGATIVE); URINE COLOR YELLOW; URINE GLUCOSE (UA) NEGATIVE (NEGATIVE); URINE KETONE NEGATIVE (NEGATIVE); URINE LEUK ESTERASE NEGATIVE (NEGATIVE); URINE NITRITE NEGATIVE (NEGATIVE); URINE PROTEIN NEGATIVE (NEGATIVE); URINE UROBILINOGEN 0.2 mg/dL (0.2-1.0)
[2019-10-28] MEDS ORDERED: predniSONE 20 MG TABLET (UD) PO ONE (11:56)
[2019-10-28] MEDS ORDERED: predniSONE 20 MG TABLET (UD) ONE (12:06)
[2019-10-28 12:38] LABS: ERYTHROCYTE SEDIMENTATION RATE 28 mm/hr (0-30)
--- NOTE | 2019-10-29 13:31 | EKG ---
Test Reason : Blood Pressure : / mmHG Vent. Rate : 083 BPM Atrial Rate : 083 BPM P-R Int : 132 ms QRS Dur : 074 ms QT Int : 362 ms P-R-T Axes : 028 -09 012 degrees QTc Int : 425 ms NORMAL SINUS RHYTHM MINIMAL VOLTAGE CRITERIA FOR LVH, MAY BE NORMAL VARIANT ANTERIOR INFARCT , AGE UNDETERMINED ABNORMAL ECG Confirmed by MD FLORA, MAGALY ([id number]) on 10/29/2019 1:30:56 PM Referred By: Confirmed By:MAGALY HINES MD
== END 2019-10-28 12:20 | disposition home or self-care (01) ==
LOC: JER 08:40
PROC: 3E0333Z Introduction of Anti-inflammatory into Peripheral Vein, Percutaneous Approach (ICD-10-PCS; principal; 2019-10-28)
DX: M32.10 Systemic lupus erythematosus, organ or system involvement unspecified (principal)
CPT/HCPCS: 36415; 80053; 81003; 82550; 84443; 84484; 85025; 85610; 85651; 86140; 87086; 93005; 93010; 99284-25; J0131

== ENCOUNTER 2020-05-30 02:44 | Emergency (ER) | payer OTHER ==
[2020-05-30 03:14] VITALS: TEMP 98.7; BMI 37.7
[2020-05-30 05:55] VITALS: BP 145/82; PULSE 97
== END 2020-05-30 05:55 | disposition home or self-care (01) ==
LOC: JER 02:44
DX: R51.9 Headache, unspecified (principal)
CPT/HCPCS: 70450-TC; 93005; 93010; 99284-25

== ENCOUNTER 2021-05-20 09:02 | Emergency (ER) | payer OTHER ==
[2021-05-20 09:08] VITALS: BMI 37.1
[2021-05-20] MEDS ORDERED: LOSARTAN POTASSIUM 50 MG TABLET PO ONE (09:22)
[2021-05-20] MEDS ORDERED: METOCLOPRAMIDE HCL INJECTION 10 MG/2 ML VIAL IVPB ONE (09:23)
[2021-05-20] MEDS ORDERED: SODIUM CHLORIDE 0.9% 1000 ML INFUS.BAG IV ONE (09:23)
[2021-05-20] MEDS ORDERED: ACETAMINOPHEN 1000 MG/100 ML BAG IVPB ONE (09:24)
[2021-05-20] MEDS ORDERED: METOCLOPRAMIDE HCL INJECTION 10 MG/2 ML VIAL ONE (10:01)
[2021-05-20] MEDS ORDERED: ACETAMINOPHEN INJECTION 100 ML IVPB ONE (10:01)
[2021-05-20 10:37] LABS: BILIRUBIN,TOTAL 0.5 mg/dl (0.2-1); CALCIUM 9.4 mg/dl (8.5-10); CREATININE 0.8 mg/dl (0.55-1.3); TOT PROT 7.5 g/dl (6.4-8.2)
[2021-05-20 10:51] LABS: BASO % 0.6 % (0-2.0); EOS % 0.9 % (0-4.5); HEMATOCRIT 37.6 % (32.4-45.2); HEMOGLOBIN 12.9 GM/dL (10.7-15.3); LYMPH % 47.6 % (8-40); MCH 30.3 pg (25.7-33.7); MCHC 34.3 g/dl (32.0-36.0); MEAN CELL VOLUME 88.5 fl (80-96); MEAN PLT VOLUME 8.3 fl (7.5-11.1); MONO % 10.5 % (3.8-10.2); NEUT % 40.4 % (42.8-82.8); PLATELET COUNT 260 10^3/uL (134-434); RBC 4.25 M/mm3 (3.60-5.2); RDW 13.1 % (11.6-15.6); WHITE BLOOD COUNT 4.5 K/mm3 (4.0-10.0)
[2021-05-20 11:02] VITALS: BP 149/75; PULSE 82; TEMP 98.4
== END 2021-05-20 11:48 | disposition home or self-care (01) ==
LOC: FER 09:02
PROC: 3E0333Z Introduction of Anti-inflammatory into Peripheral Vein, Percutaneous Approach (ICD-10-PCS; principal; 2021-05-20)
PROC: 3E033GC Introduction of Other Therapeutic Substance into Peripheral Vein, Percutaneous Approach (ICD-10-PCS; 2021-05-20)
PROC: 3E033GC Introduction of Other Therapeutic Substance into Peripheral Vein, Percutaneous Approach (ICD-10-PCS; 2021-05-20)
DX: M54.41 Lumbago with sciatica, right side (principal)
CPT/HCPCS: 36415; 80053; 84484; 85025; 93005; 99284-25